=== PATIENT | female | born 1950 | race African-American/Black ===

== ENCOUNTER 2017-07-19 07:02 | Emergency (ER) | payer OTHER ==
[~2017-07-19] VITALS: Ht 157.5 cm; Wt 80.4 kg
[~2017-07-19 07:02] MED LIST: ALPRAZOLAM0.5 MG PO; ASPIRIN325 MG PO; ATORVASTATIN CA40 MG PO; BENADRYL50 MG PO; GABAPENTIN600 MG PO; HYDROCHLOROTH12.5 M2 PO; HYDROCODON-ACE1 EAC7 PO; LISINOPRIL5 MG; MEDROL DOSEPAK4 MG PO; OXYCODONE-APAP1 EACH PO; PERCOCET 5/31 TABLET PO; WELLBUTRIN SR200 MG PO; ZETIA10 MG
[2017-07-19 07:24] LABS: APPEARANCE SL.HAZY ((CLEAR)); BILIRUBIN NEGATIVE; BLOOD LARGE; COLOR YELLOW ((YELLOW)); GLUCOSE (STRIP) NEGATIVE; KETONES NEGATIVE; LEUKOCYTES MODERATE; NITRITE NEGATIVE; PROTEIN (STRIP) 30; UROBILINOGEN 0.2 MG/DL (0.2-1.0)
[2017-07-19 07:41] LABS: HEMATOCRIT 38.2 % (36.0-46.0); MCH 30.5 PG (29.0-34.0); MCV 89.7 FL (83-99); PLATELET COUNT 304 K/uL (156-360); RBC DIS.WIDTH-CV 13.2 % (11.8-14.6); RBC DIS.WIDTH-SD 43.4 % (39-53); RED BLOOD COUNT 4.26 M/uL (3.80-5.20); WHITE BLOOD COUNT 13.1 K/uL (4.1-10.2)
[2017-07-19 07:49] LABS: AMORPHOUS URATES CRYSTALS RARE; BACTERIA RARE /HPF; EPITHELIAL CELLS NONE SEEN /HPF; MUCUS NONE SEEN /LPF; UCUL ADDED? YES; WHITE BLOOD CELLS 40-50 /HPF (0-5)
[2017-07-19 08:12] LABS: CHLORIDE 106 MEQ/L (99-109); CREATININE 1.4 MG/DL (0.6-1.3); GFR ESTIMATE (CALCULATED) 48 mL/min/; GLUCOSE 101 mg/dL (70-99); SODIUM 140 MEQ/L (136-147); UREA NITROGEN (BUN) 22 mg/dL (9-23)
[2017-07-19] MEDS ORDERED: KEFLEX500 MG PO (09:13)
[2017-07-19] MEDS ORDERED: PYRIDIUM200 MG PO (09:13)
[2017-07-19 11:27] VITALS: BP 160/84
== END 2017-07-19 11:43 | disposition home or self-care (01) ==
LOC: EME 07:02
PROVIDERS: Nurse Practitioner Family
DX: N39.0 Urinary tract infection, site not specified (principal); N17.9 Acute kidney failure, unspecified; N13.30 Unspecified hydronephrosis; N32.9 Bladder disorder, unspecified; R31.9 Hematuria, unspecified; I10 Essential (primary) hypertension; Z90.49 Acquired absence of other specified parts of digestive tract; Z79.82 Long term (current) use of aspirin; F17.200 Nicotine dependence, unspecified, uncomplicated
CPT/HCPCS: 74176; 80048; 81003; 85027; 87086; 99281; 99284; J0696; J1885; J7030

== ENCOUNTER → 2017-07-28 | Outpatient (CLI) | payer MEDICARE, OTHER ==
[~2017-07-28] MED LIST changes: +ENDOCET 10-3251 EACH PO; +KEFLEX500 MG PO; +LIPITOR40 MG PO; +MICROZIDE12.5 M1 PO; +PYRIDIUM200 MG PO; +XANAX0.5 MG PO
== END | disposition home or self-care (01) ==
LOC: CDC 11:36
DX: Z01.810 Encounter for preprocedural cardiovascular examination (principal); N32.9 Bladder disorder, unspecified
CPT/HCPCS: 93000

== ENCOUNTER 2017-08-04 09:24 | Day surgery (SDC) | payer OTHER ==
[~2017-08-04] VITALS: Ht 157.5 cm; Wt 81.6 kg
[2017-08-04 10:05] VITALS: BP 183/83
[2017-08-04 13:35] VITALS: BP 180/80
[2017-08-04 14:31] VITALS: BP 168/77
== END 2017-08-04 14:40 | disposition home or self-care (01) ==
LOC: SDC
PROC: 0TBB8ZX Excision of Bladder, Via Natural or Artificial Opening Endoscopic, Diagnostic (ICD-10-PCS; principal; 2017-08-04)
DX: C67.9 Malignant neoplasm of bladder, unspecified (principal); I10 Essential (primary) hypertension; E78.5 Hyperlipidemia, unspecified; Z79.82 Long term (current) use of aspirin
CPT/HCPCS: 88307; J0690; J2250; J2405